=== PATIENT | female | born 1980 | race Caucasian/White ===

== ENCOUNTER 2018-04-09 10:05 | Emergency (ER) | payer SELFPAY, BC ==
[2018-04-09 10:45] LABS: BASO # 0.1 10^3/uL (0.0-0.2); BASO % 0.5 % (0.0-1.0); EOS # 0.4 10^3/uL (0.0-0.50); EOS % 3.7 % (0.0-3.0); HEMATOCRIT 37.8 % (36.0-47.0); HEMOGLOBIN 13.2 g/dl (12.0-15.5); IMMATURE GRANULOCYTE % 0.3 % (0-3.0); LYMPH # 2.2 10^3/uL (1.5-4.5); LYMPH % 22.7 % (24.0-44.0); MEAN CORPUSCULAR HEMOGLOBIN 30.4 pg (27.0-33.0); MEAN CORPUSCULAR HGB CONC 34.9 g/dl (32.0-36.5); MEAN CORPUSCULAR VOLUME 87.1 fl (80.0-96.0); MONO # 0.6 10^3/uL (0.0-0.8); MONO % 5.9 % (0.0-5.0); NEUTROPHILS # 6.6 10^3/uL (1.8-7.7); NEUTROPHILS % 66.9 % (36.0-66.0); PLATELET COUNT, AUTOMATED 233 10^3/uL (150-450); RED BLOOD COUNT 4.34 10^6/uL (4.00-5.40); RED CELL DISTRIBUTION WIDTH 11.6 % (11.5-14.5); WHITE BLOOD COUNT 9.8 10^3/uL (4.0-10.0)
[2018-04-09] MEDS: NS 1,000 ML IV (10:49)
[2018-04-09] MEDS: FAMOTIDINE IV BAG 20 MG in APPROPRIATE DILUENT 1 EA IV (10:49)
[2018-04-09 10:54] LABS: KETONE, URINE AUTO RFX NEGATIVE (NEGATIVE); LEUKOCYTE ESTERASE UR AUTO RFX NEGATIVE (NEGATIVE); MUCUS, URINE RFX SMALL (NEGATIVE); NITRITE, URINE AUTO RFX NEGATIVE (NEGATIVE); RBC, URINE AUTO RFX 2 /HPF (0-3); SPECIFIC GRAVITY UR AUTO RFX 1.026 (1.002-1.035); SQUAM EPITHELIAL CELL UR AURFX 1 /HPF (0-6); WBC, URINE AUTO RFX 0 /HPF (0-3)
[2018-04-09 11:17] LABS: ALBUMIN 3.2 GM/DL (3.2-5.2); ALBUMIN/GLOBULIN RATIO 0.97 (1.00-1.93); ALKALINE PHOSPHATASE 46 U/L (45-117); ALT/SGPT 17 U/L (12-78); ANION GAP 11 MEQ/L (8-16); AST/SGOT 16 U/L (7-37); BILIRUBIN,DIRECT < 0.1 MG/DL (0.0-0.2); BILIRUBIN,TOTAL 0.4 MG/DL (0.2-1.0); BLOOD UREA NITROGEN 10 MG/DL (7-18); CALCIUM LEVEL 8.3 MG/DL (8.5-10.1); CARBON DIOXIDE LEVEL 25 MEQ/L (21-32); CHLORIDE LEVEL 105 MEQ/L (98-107); CREATININE FOR GFR 0.77 MG/DL (0.55-1.30); GLOMERULAR FILTRATION RATE > 60.0 (>60); GLUCOSE, FASTING 77 MG/DL (70-100); LIPASE 133 U/L (73-393); POTASSIUM SERUM 3.8 MEQ/L (3.5-5.1); SODIUM LEVEL 141 MEQ/L (136-145); TOTAL PROTEIN 6.5 GM/DL (6.4-8.2)
[2018-04-09] MEDS: METOCLOPRAMIDE INJ 10MG/2ML VIAL (J2765) IV (11:27)
== END 2018-04-09 12:42 | disposition home or self-care (01) ==
LOC: M ED 10:05
DX: O99.611 Diseases of the digestive system complicating pregnancy, first trimester (principal); K21.9 Gastro-esophageal reflux disease without esophagitis; K80.50 Calculus of bile duct without cholangitis or cholecystitis without obstruction; Z3A.08 8 weeks gestation of pregnancy; Z88.1 Allergy status to other antibiotic agents; Z88.2 Allergy status to sulfonamides; Z83.79 Family history of other diseases of the digestive system
CPT/HCPCS: J2765

== ENCOUNTER → 2018-04-13 | Outpatient (REF) | payer SELFPAY | LOC: M LAB REF 15:14 | DX: R19.7 Diarrhea, unspecified (principal); R10.11 Right upper quadrant pain ==

== ENCOUNTER → 2018-05-06 | Outpatient (CLI) | payer SELFPAY ==
[2018-05-06 14:11] LABS: BASO % 0.4 % (0.0-1.0); EOS # 0.4 10^3/uL (0.0-0.50); EOS % 4.2 % (0.0-3.0); HEMOGLOBIN 12.2 g/dl (12.0-15.5); IMMATURE GRANULOCYTE % 0.4 % (0-3.0); LYMPH # 2.3 10^3/uL (1.5-4.5); LYMPH % 23.7 % (24.0-44.0); MEAN CORPUSCULAR HEMOGLOBIN 31.5 pg (27.0-33.0); MEAN CORPUSCULAR HGB CONC 35.9 g/dl (32.0-36.5); MEAN CORPUSCULAR VOLUME 87.9 fl (80.0-96.0); MONO # 0.5 10^3/uL (0.0-0.8); MONO % 5.3 % (0.0-5.0); NEUTROPHILS # 6.4 10^3/uL (1.8-7.7); PLATELET COUNT, AUTOMATED 239 10^3/uL (150-450); RED BLOOD COUNT 3.87 10^6/uL (4.00-5.40); RED CELL DISTRIBUTION WIDTH 12.3 % (11.5-14.5); WHITE BLOOD COUNT 9.8 10^3/uL (4.0-10.0)
[2018-05-06 15:10] LABS: HBsAg Prenatal NEGATIVE (NEGATIVE); HIV 1&2 SCREEN CENTAUR NEGATIVE (NEGATIVE); RUBELLA IgG QUALITATIVE IMMUNE (IMMUNE)
[2018-05-06 15:30] LABS: CHLAMYDIA DNA AMPLIFICATION NEGATIVE (NEGATIVE); GC DNA AMPLIFICATION NEGATIVE (NEGATIVE)
== END ==
LOC: M LAB 13:19
DX: Z36.89 Encounter for other specified antenatal screening (principal)
CPT/HCPCS: 86762

== ENCOUNTER → 2018-07-13 | Outpatient (CLI) | payer OTHER ==
[~2018-07-13] MED LIST: FERR325T3 PO; PEPC1TAB5 PO; PRENTAB55 PO
--- NOTE | 2018-07-14 08:56 | REP ---
Obstetric sonography: History: Supervision of for anatomy. Findings: Scanning through the gravid uterus demonstrates a viable single intrauterine gestation in a cephalic lie. motion is observed and heart rate is recorded at 144 beats per minute. A posterior grade 1 placenta is seen without evidence of previa or abruption. Amniotic fluid is subjectively normal. Closed cervical length is 4.9 cm viewed transabdominally. No extrauterine abnormalities observed. No anomaly is seen. Four-chamber heart view is less than optimally achieved due to position. The following additional anatomic structures are identified and felt to be sonographically unremarkable: cranium, choroid plexus, cavum, cerebellum and posterior fossa, face and profile, lungs, left and right ventricular cardiac outflow tract views, diaphragm, left-sided stomach, abdominal wall cord insertion, three-vessel umbilical cord, kidneys and bladder, spine, upper and lower extremities. Biometry chart: BPD 5.4 cm = 22 weeks 2 days Head circumference 19.7 cm = 21 weeks 6 days Abdominal circumference 16.5 cm = 21 weeks 4 days Femur length 3.6 cm = 21 weeks 3 days Humeral length 3.6 cm = 22 weeks 2 days Cerebellar diameter 2.4 cm = 21 weeks 6 days HC/AC ratio normal 1.20. Cephalic index normal 0.8. Estimated weight 435 grams, 0 pounds 15 ounces, 48th percentile for 21 weeks 3 days. Impression: Viable single intrauterine gestation at 21 weeks 3 days by today's sonographic criteria. BENEDICTO by today's criteria November 20, 2018. Four-chamber heart view is less than optimally seen due to position. anatomic survey is otherwise complete. Electronically Signed by Axel Harrell MD 07/14/2018 09:32 A
== END ==
LOC: M SMT 14:59
PROVIDERS: ATTEND Specialist
DX: O09.522 Supervision of elderly multigravida, second trimester (principal); Z3A.21 21 weeks gestation of pregnancy

== ENCOUNTER → 2018-10-27 | Outpatient (REF) | payer OTHER | LOC: M LAB REF 17:51 | PROVIDERS: ATTEND Specialist | DX: O09.523 Supervision of elderly multigravida, third trimester (principal) ==

== ENCOUNTER 2018-11-14 07:30 | Inpatient (IN) | payer OTHER ==
[~2018-11-14] VITALS: Ht 170.2 cm; Wt 81.9 kg
[2018-11-15] VITALS (8 sets, daily range): BP systolic 114–139; BP diastolic 68–82
[2018-11-15] MEDS ORDERED: LR 1,000 ML IV SCH ×3 (07:45→10:15)
[2018-11-15] MEDS ORDERED: LR 800 ML IV ONE (07:45)
[2018-11-15] MEDS ORDERED: BICITRA 30ML SOLN UDC PO ONE (07:45)
[2018-11-15] MEDS ORDERED: OXYC1TAB23 PO (07:56)
[2018-11-15] MEDS ORDERED: IBUP-1022 PO (07:59)
[2018-11-15 08:11] LABS: HEMATOCRIT 39.1 % (36.0-47.0); HEMOGLOBIN 13.4 g/dl (12.0-15.5); MEAN CORPUSCULAR HEMOGLOBIN 30.5 pg (27.0-33.0); MEAN CORPUSCULAR HGB CONC 34.3 g/dl (32.0-36.5); MEAN CORPUSCULAR VOLUME 89.1 fl (80.0-96.0); PLATELET COUNT, AUTOMATED 213 10^3/uL (150-450); RED BLOOD COUNT 4.39 10^6/uL (4.00-5.40); WHITE BLOOD COUNT 11.6 10^3/uL (4.0-10.0)
[2018-11-15] MEDS ORDERED: ONDANSETRON 4MG/2ML VIAL (J2405) As Ordered ONE (08:29)
[2018-11-15] MEDS ORDERED: BUPIVACAINE/DEXTROSE 0.75% 2 ML AMP As Ordered ONE (08:30)
[2018-11-15] MEDS ORDERED: OXYTOCIN INJ 10 UNITS/ML VIAL (J2590) As Ordered ONE (08:30)
[2018-11-15] MEDS ORDERED: MORPHINE PRES-FREE INJ 10 MG/10 ML VIAL (J2274) As Ordered ONE (08:31)
[2018-11-15] MEDS ORDERED: NALBUPHINE HCL 10 MG/ML AMP (J2300) IV PRN (08:45)
[2018-11-15] MEDS ORDERED: NALOXONE INJ 0.4 MG/1 ML VIAL (J2310) IV PRN ×2 (08:45)
[2018-11-15] MEDS ORDERED: METOCLOPRAMIDE INJ 10MG/2ML VIAL (J2765) IV PRN ×2 (08:45→10:15)
[2018-11-15] MEDS ORDERED: diphenhydrAMINE INJ 50MG/ML VIAL (J1200) IV PRN (08:45)
[2018-11-15] MEDS ORDERED: ONDANSETRON 4MG/2ML VIAL (J2405) IV PRN ×3 (08:45→10:15)
[2018-11-15] MEDS ORDERED: OXYTOCIN 30 UNITS IN 0.9% NaCl 500ML IV BAG (J2590) As Ordered ONE (09:57)
[2018-11-15] MEDS ORDERED: RHOGAM 300 MCG (1500 IU) INJ (J2790) IM SCH (10:00)
[2018-11-15] MEDS ORDERED: OXYTOCIN DRIP 30 UNITS in APPROPRIATE DILUENT 1 EA IV SCH (10:00)
[2018-11-15] MEDS ORDERED: PERCOCET 5MG/325MG TAB PO PRN ×2 (10:00→10:15)
[2018-11-15] MEDS ORDERED: MEASLES,MUMPS,RUBELLA VACCINE INJ (MMR-II) (90707) SC SCH (10:00)
[2018-11-15] MEDS ORDERED: MOM 30ML SUSPENSION UDC PO PRN (10:00)
--- NOTE | 2018-11-15 10:16 | RO ---
DATE OF OPERATION: 11/15/2018 PREOPERATIVE DIAGNOSIS: 39 weeks, prior (C) section times one. POSTOPERATIVE DIAGNOSIS: 39 weeks, prior section times one. PROCEDURE: Repeat low transverse section. SURGEON: Rogelio Moran MD BUILDING CARPENTER: Shilpa Smyth MD ANESTHESIA: Spinal. ESTIMATED BLOOD LOSS: 600 mL. URINE OUTPUT: 175 mL. FINDINGS: 2730-gram or 6-pound 0-ounce male infant, scores 9 and 9, vertex, adhesions of the bladder to the uterine fundus on the left. Normal fallopian tubes and ovaries. DESCRIPTION OF PROCEDURE: Operative summary: The patient taken the operating room, where spinal anesthesia was induced. She was prepped and draped in sterile fashion in the supine position. A Johnson catheter was placed. A Pfannenstiel skin incision was made with the scalpel and carried through to the fascia. The fascia was nicked and extended. The fascia was dissected off the rectus muscles. The peritoneal cavity was entered. A bladder flap was created. Adhesions to the bladder to uterine fundus were taken down sharply. A curvilinear incision was made in the lower uterine segment until clear fluid was noted. This was extended manually. The was delivered in the vertex position with a single use of the vacuum extractor. The cord was doubly clamped and cut. The infant was handed off to the awaiting nurses. The placenta was expressed. The uterus was exteriorized and cleared of clots and debris. The uterine incision was closed with 0 Vicryl in a running locked fashion. A second imbricating layer of 0 Vicryl was placed. The uterus was placed back in the abdominal cavity. The peritoneum was closed with 2-0 Vicryl in a running fashion. The fascia was closed with 0 Vicryl in a running fashion. THe subcutaneous tissue was irrigated and closed with 3-0 chromic. The skin was closed with 4-0 Monocryl in subcuticular sutures. Sponge, instrument, and needle counts were correct. Shilpa Smyth MD assisted with all aspects of the procedure. He helped create the incision in all layers of the abdomen and uterus. Her helped expel the fetus. He helped close all subsequent layers. TIERA
[2018-11-15] MEDS ORDERED: KETOROLAC 30 MG/ML VIAL (J1885) As Ordered ONE (11:13)
[2018-11-15] MEDS ORDERED: fentaNYL 100 MCG/2 ML INJECTION (J3010) As Ordered ONE (11:13)
[2018-11-15] MEDS: KETOROLAC 30 MG/ML VIAL (J1885) IV SCH ×3 (11:18→22:27)
[2018-11-15] MEDS: fentaNYL 100 MCG/2 ML INJECTION (J3010) IV PRN ×4 (11:26→11:52)
[2018-11-15] MEDS: DOCUSATE SODIUM 100 MG CAP PO SCH (21:12)
[2018-11-16 02:11] VITALS: BP 110/59
[2018-11-16] MEDS: KETOROLAC 30 MG/ML VIAL (J1885) IV SCH (05:30)
[2018-11-16 06:01] VITALS: BP 104/54
[2018-11-16 06:46] LABS: HEMATOCRIT 30.7 % (36.0-47.0); MEAN CORPUSCULAR HGB CONC 33.6 g/dl (32.0-36.5); MEAN CORPUSCULAR VOLUME 92.5 fl (80.0-96.0); PLATELET COUNT, AUTOMATED 180 10^3/uL (150-450); RED BLOOD COUNT 3.32 10^6/uL (4.00-5.40); WHITE BLOOD COUNT 11.9 10^3/uL (4.0-10.0)
[2018-11-16 06:56] LABS: HEMOGLOBIN 10.3 g/dl (12.0-15.5)
--- NOTE | 2018-11-16 07:11 | NUR ---
POD#1 S: Doing well w/o complaints. Pain moderately controlled. Tolerating reg diet, + ambulation O: vss, AF Gen: well appearing abd: soft, appropriately tender incision: dressed ext: neg calf tenderness A/P: POD # 1 s/p repeat c/s - recovering in stable condition -cont routine postoperative care -disposition plan for tomorrow Shilpa Smyth MD
[2018-11-16] MEDS: PRENATAL VITAMINS CHEWABLE TABLET PO SCH (09:28)
[2018-11-16] MEDS: DOCUSATE SODIUM 100 MG CAP PO SCH ×2 (09:28→20:38)
[2018-11-16] MEDS: PERCOCET 5MG/325MG TAB PO PRN ×3 (09:54→22:30)
[2018-11-16 10:00] VITALS: BP 114/67
[2018-11-16 13:45] VITALS: BP 111/62
[2018-11-16] MEDS: IBUPROFEN 800 MG TAB PO SCH ×2 (13:59→20:38)
[2018-11-16 18:00] VITALS: BP 105/57
[2018-11-16 21:41] VITALS: BP 108/59
[2018-11-17 02:33] VITALS: BP 104/59
[2018-11-17] MEDS: IBUPROFEN 800 MG TAB PO SCH (05:36)
[2018-11-17 05:42] VITALS: BP 108/79
--- NOTE | 2018-11-17 06:56 | DSES ---
DATE OF ADMISSION: 11/15/2018 DATE OF DISCHARGE: DISCHARGE DIAGNOSIS: Repeat section at term, postoperative day two, stable condition. SURGEON: Dr. Rogelio Moran POLL WATCHER: Dr. Shilpa Smyth HISTORY: Lina is a 38-year-old, 3, para 2-0-1-2 now, who was admitted for repeat section, elective. Her surgery was uncomplicated. The estimated blood loss was 500 mL. She did deliver a male weighing 2730 grams, 6 pounds. 9 and 9. Her postoperative course has been uncomplicated. She has been out of bed for self care, richy care and infant care. She is voiding without difficulty, tolerating by mouth fluids and a regular diet. She does report not passing flatus. Breast feeding has been established. Her pain has been well controlled with by mouth pain medications. ASSESSMENT: Temperature 97.7, pulse 101, respirations 15, blood pressure (BP) 108/79. She is alert and oriented times three. 11/15/2018 CBC: Hemoglobin 13.4, hematocrit 39.1, platelets 213. Postoperative CBC: Hemoglobin 10.3, hematocrit 30.7, platelets 180. Her breasts are soft and nontender. Her nipples are intact. There are no cracks. Abdomen: Fundus firm at one fingerbreadth below umbilicus. The incision dressing is dry and intact. There appears to be no drainage. Perineum is intact. Lochia rubra scant. PLAN: Discharge the patient home. She is to follow up at [facility] for a 2-week incision check and an 8-week visit. I did review discharge instructions that include breast care, incision care, richy care, pelvic rest, activity and lifting restrictions, danger signs to report, and access to her provider. Prescription for pain medications of Percocet 5/325 1-2 tablets by mouth every 6 hours as needed have been E-prescribed by Dr. Rogelio Moran. The patient and her have had all their questions answered and are agreeable to discharge today.
[2018-11-17] MEDS: DOCUSATE SODIUM 100 MG CAP PO SCH (08:21)
[2018-11-17] MEDS: PRENATAL VITAMINS CHEWABLE TABLET PO SCH (08:21)
[2018-11-17] MEDS: PERCOCET 5MG/325MG TAB PO PRN (08:21)
[2018-11-17 10:00] VITALS: BP 112/74
== END 2018-11-17 13:25 | disposition home or self-care (01) | DRG 540 ==
LOC: M LDI 11-15 06:28 → M OBS 11-15 11:49
PROVIDERS: ADMIT Specialist; ATTEND Specialist
PROC: 10D00Z1 Extraction of Products of Conception, Low, Open Approach (ICD-10-PCS; principal; 2018-11-15 08:30)
DX: O34.211 Maternal care for low transverse scar from previous cesarean delivery (principal); O09.523 Supervision of elderly multigravida, third trimester; Z37.0 Single live birth; Z3A.39 39 weeks gestation of pregnancy

== ENCOUNTER → 2019-11-07 | Outpatient (CLI) | payer OTHER ==
[~2019-11-07] MED LIST changes: +IBUP-1022 PO; +OXYC1TAB23 PO
--- NOTE | 2019-11-07 16:08 | REP ---
Chest x-ray: Two views. History: Cough . Comparison study: No comparison study. . Findings: The lungs are well inflated and free of infiltrate. The pleural angles are sharp. The heart size is normal. Pulmonary vasculature is not increased. No significant bony abnormality is seen. Impression: Negative chest x-ray. Electronically Signed by Axel Harrell MD 11/07/2019 04:00 P
== END ==
LOC: M CLY 08:24
PROVIDERS: ATTEND Nurse Practitioner Family
DX: R05 Cough (principal)

== ENCOUNTER → 2019-12-07 | Outpatient (REF) | payer OTHER | LOC: M SFHCWAGY 17:18 | PROVIDERS: ATTEND Specialist | DX: Z12.4 Encounter for screening for malignant neoplasm of cervix (principal); Z01.419 Encounter for gynecological examination (general) (routine) without abnormal findings ==

== ENCOUNTER → 2020-12-05 | Outpatient (CLI) | payer OTHER ==
--- NOTE | 2020-12-09 14:03 | REPMRS ---
Patient History The patient states she has not had a clinical breast exam in over a year. Patient had first child at age 35. Family history of breast cancer at age 45 in mother. Patient states no breast complaints today. Patient has signed MRS History Sheet. Digital Woman Screen Mammo: December 05, 2020 - Exam #: [id number] Bilateral CC and MLO view(s) were taken. Technologist: Mary Anne Thrasher Technologist FINDINGS: The breast tissue is extremely dense which could obscure a lesion on mammography. Screening. Digital screening (2D) mammography was performed bilaterally in the CC and MLO projections. Additionally, breast tomosynthesis (3D mammography) was performed bilaterally in the CC and MLO projections. Todays exam was compared to the prior exam/exams. By history, the patient has no complaints of a palpable breast abnormality or other significant breast complaints. The breasts are unchanged in size and shape. Once again, dense heterogenous fibroglandular elements are seen bilaterally in a stable appearing pattern but to such a degree that the sensitivity of the mammogram in detecting cancer is decreased.There are no gordon-soft tissue densities or spiculated masses. There is no internal architectural distortion.Once again, stable benign appearing calcifications are seen. There are no suspicious gordon-calcific clusters. Skin thickening or nipple retraction is not present. IMPRESSION: BI-RADS Category 2- Benign Findings. There is no evidence of malignant alteration of the breasts. Followup examination recommended in one year. The Volpara volumetric breast density category is D, the breasts are extremely dense which lowers the sensitivity of mammography. This mammogram was read with the assistance of [facility],an FDA approved computer aided detection system for mammography. The lifetime Tyrer-Cuzick score is 28 % Due to the density of the breasts or Tyrer Cuzick score of 20% or greater, MRI/whole breast screening ultrasound is warranted. Negative x-ray reports should not delay surgical consultation if a dominant or clinically suspicious mass is present. Not all breast cancers can be identified by mammography. Therefore, we recommend that you continue to perform regular breast self-examination and physical examination and then promptly contact your physician of any concerns or changes. Adenosis and dense breasts may obscure an underlying neoplasm. Assessment: BI-RADS/ACR category 2 mammogram. Benign Findings. Recommendation Routine screening mammogram of both breasts in 1 year. Electronically Signed By: Jonathan Marcano DO 12/09/20 [id number]
== END ==
LOC: M WHC 07:08
PROVIDERS: ATTEND Specialist
DX: Z12.31 Encounter for screening mammogram for malignant neoplasm of breast (principal)

== ENCOUNTER → 2021-01-08 | Outpatient (CLI) | payer OTHER ==
--- NOTE | 2021-01-08 09:27 | REP ---
INDICATION: PAIN OF RT GREAT TOE COMPARISON: None. TECHNIQUE: AP, lateral, bilateral oblique views right foot. FINDINGS: The osseous structures and joint spaces are intact and normal. There is no evidence for acute fracture or dislocation. Surrounding soft tissues are unremarkable. No subcutaneous emphysema or radiodense foreign body. There is subtle sclerosis and joint space narrowing at the 1st metatarsophalangeal joint which is relatively age-appropriate. IMPRESSION: Very minimal age-related changes at the 1st MTP joint. <Electronically signed by Cole Fischer > 01/08/21 0913
== END ==
LOC: M CLY 08:34
PROVIDERS: ATTEND Nurse Practitioner Family
DX: M79.674 Pain in right toe(s) (principal)

== ENCOUNTER → 2021-05-28 | Outpatient (REF) | payer OTHER ==
[2021-05-28 16:21] LABS: BASO # 0.1 10^3/uL (0.0-0.2); BASO % 0.7 % (0.0-1.0); EOS # 0.6 10^3/uL (0.0-0.5); EOS % 6.8 % (0.0-3.0); HEMATOCRIT 40.8 % (36.0-47.0); HEMOGLOBIN 13.2 g/dl (12.0-15.5); LYMPH # 2.9 10^3/uL (1.5-5.0); LYMPH % 34.3 % (24.0-44.0); MEAN CORPUSCULAR HEMOGLOBIN 29.5 pg (27.0-33.0); MEAN CORPUSCULAR HGB CONC 32.4 g/dl (32.0-36.5); MEAN CORPUSCULAR VOLUME 91.1 fl (80.0-96.0); MONO # 0.5 10^3/uL (0.0-0.8); MONO % 6.2 % (2.0-8.0); NEUTROPHILS # 4.3 10^3/uL (1.5-8.5); NEUTROPHILS % 51.9 % (36.0-66.0); PLATELET COUNT, AUTOMATED 238 10^3/uL (150-450); RED BLOOD COUNT 4.48 10^6/uL (4.00-5.40); WHITE BLOOD COUNT 8.4 10^3/uL (4.0-10.0)
[2021-05-28 17:01] LABS: ALBUMIN 3.7 GM/DL (3.2-5.2); ALT/SGPT 18 U/L (12-78); BILIRUBIN,TOTAL 0.6 MG/DL (0.2-1.0); BLOOD UREA NITROGEN 14 MG/DL (7-18); CALCIUM LEVEL 9.1 MG/DL (8.5-10.1); CARBON DIOXIDE LEVEL 30 MEQ/L (21-32); CHLORIDE LEVEL 105 MEQ/L (98-107); CHOLESTEROL LEVEL 199 MG/DL (<200); CHOLESTEROL RISK RATIO 2.456 (<5); CREATININE FOR GFR 0.94 MG/DL (0.55-1.30); FREE T4 0.96 NG/DL (0.76-1.46); GLOMERULAR FILTRATION RATE > 60.0 (>60); GLUCOSE, FASTING 76 MG/DL (70-100); HDL CHOLESTEROL 81 MG/DL (>40); LDL CHOLESTEROL 98 MG/DL (<100); MAGNESIUM LEVEL 1.8 MG/DL (1.8-2.4); NON-HDL-C 118 MG/DL; POTASSIUM SERUM 4.5 MEQ/L (3.5-5.1); SODIUM LEVEL 138 MEQ/L (136-145); TOTAL PROTEIN 6.8 GM/DL (6.4-8.2); TRIGLYCERIDES LEVEL 99 MG/DL (<150)
== END ==
LOC: M SFHCCLAY 10:04
PROVIDERS: ATTEND Nurse Practitioner Family
DX: M79.674 Pain in right toe(s) (principal); Z13.220 Encounter for screening for lipoid disorders; R53.83 Other fatigue; R00.2 Palpitations

== ENCOUNTER → 2021-08-05 | Outpatient (REF) | payer OTHER | LOC: M PLALAB 09:02 | PROVIDERS: ATTEND Specialist | DX: Z01.419 Encounter for gynecological examination (general) (routine) without abnormal findings (principal) ==

== ENCOUNTER → 2021-09-10 | Outpatient (CLI) | payer OTHER ==
[~2021-09-10] MED LIST changes: +PROHANCE 279.3MG/ML 15ML VIAL ONE
== END ==
LOC: M PLAIMG 14:52
PROVIDERS: ATTEND Specialist
DX: R92.2 Inconclusive mammogram (principal); Z12.31 Encounter for screening mammogram for malignant neoplasm of breast
CPT/HCPCS: A9576; C8908

== ENCOUNTER → 2022-09-15 | Outpatient (REF) | payer OTHER ==
[~2022-09-15] MED LIST changes: -PROHANCE 279.3MG/ML 15ML VIAL ONE
== END ==
LOC: M SFHCWAGY 17:24
PROVIDERS: ATTEND Specialist
DX: Z01.419 Encounter for gynecological examination (general) (routine) without abnormal findings (principal)
CPT/HCPCS: 87624; G0123

== ENCOUNTER → 2023-03-03 | Outpatient (REF) | payer OTHER ==
[2023-03-03 18:19] LABS: BASO % 0.4 % (0.0-1.0); EOS # 0.2 10^3/uL (0.0-0.5); EOS % 2.5 % (0.0-3.0); HEMATOCRIT 38.7 % (36.0-47.0); HEMOGLOBIN 12.8 g/dl (12.0-15.5); LYMPH # 2.4 10^3/uL (1.5-5.0); LYMPH % 30.2 % (24.0-44.0); MEAN CORPUSCULAR HEMOGLOBIN 29.6 pg (27.0-33.0); MEAN CORPUSCULAR HGB CONC 33.1 g/dl (32.0-36.5); MEAN CORPUSCULAR VOLUME 89.6 fl (80.0-96.0); MONO # 0.5 10^3/uL (0.0-0.8); MONO % 6.3 % (2.0-8.0); NEUTROPHILS # 4.8 10^3/uL (1.5-8.5); NEUTROPHILS % 60.2 % (36.0-66.0); PLATELET COUNT, AUTOMATED 243 10^3/uL (150-450); RED BLOOD COUNT 4.32 10^6/uL (4.00-5.40)
[2023-03-03 18:52] LABS: LIPASE 33 U/L (12-53)
[2023-03-03 18:54] LABS: ALBUMIN 3.4 G/DL (3.2-5.2); ALKALINE PHOSPHATASE 62 U/L (46-116); ALT/SGPT 19 U/L (7.0-40); AMYLASE 77 U/L (30-118); AST/SGOT 17 U/L (<34); BILIRUBIN,TOTAL 0.5 MG/DL (0.3-1.2); BLOOD UREA NITROGEN 13 MG/DL (9-23); CALCIUM LEVEL 8.7 MG/DL (8.5-10.1); CARBON DIOXIDE LEVEL 28 MMOL/L (20-31); CHLORIDE LEVEL 107 MMOL/L (98-107); CREATININE FOR GFR 0.89 MG/DL (0.55-1.30); GLOMERULAR FILTRATION RATE > 60.0 (>58); GLUCOSE, FASTING 86 MG/DL (60-100); SODIUM LEVEL 140 MMOL/L (136-145); TOTAL PROTEIN 6.2 G/DL (5.7-8.2)
== END ==
LOC: M SFHCCLAY 11:46
PROVIDERS: ATTEND Nurse Practitioner Family
DX: R10.11 Right upper quadrant pain (principal)

== ENCOUNTER → 2023-04-15 | Outpatient (CLI) | payer OTHER | LOC: M WHC 09:37 | PROVIDERS: ATTEND Specialist | DX: Z12.31 Encounter for screening mammogram for malignant neoplasm of breast (principal) ==

== ENCOUNTER → 2024-05-23 | Outpatient (CLI) | payer OTHER | LOC: M WHC 09:36 | PROVIDERS: ATTEND Obstetrics & Gynecology | DX: Z12.31 Encounter for screening mammogram for malignant neoplasm of breast (principal); R92.333 Mammographic heterogeneous density, bilateral breasts ==

== ENCOUNTER → 2024-06-21 | Outpatient (CLI) | payer OTHER | LOC: M CLY 08:04 | PROVIDERS: ATTEND Physician Assistant | DX: R05.3 Chronic cough (principal) ==

== ENCOUNTER → 2024-10-06 | Outpatient (REF) | payer OTHER | LOC: M SFHCWAGY 16:53 | PROVIDERS: ATTEND Specialist | DX: N39.0 Urinary tract infection, site not specified (principal) ==

== ENCOUNTER → 2025-01-25 | Outpatient (CLI) | payer OTHER ==
[~2025-01-25] MED LIST changes: +PROHANCE 279.3MG/ML 15ML VIAL ONE
== END ==
LOC: M PLAIMG 08:55
PROVIDERS: ATTEND Specialist
DX: Z12.31 Encounter for screening mammogram for malignant neoplasm of breast (principal); Z80.3 Family history of malignant neoplasm of breast; R92.333 Mammographic heterogeneous density, bilateral breasts
CPT/HCPCS: A9576; C8908

== ENCOUNTER → 2025-05-28 | Outpatient (REF) | payer OTHER ==
[~2025-05-28] MED LIST changes: -IBUP-1022 PO; +IBUP600T42 PO; -PROHANCE 279.3MG/ML 15ML VIAL ONE
[2025-05-30 14:17] LABS: HPV APTIMA Not Detected (Not Detected)
== END ==
LOC: M SFHCWAGY 10:49
PROVIDERS: ATTEND Specialist
DX: Z12.4 Encounter for screening for malignant neoplasm of cervix (principal)
CPT/HCPCS: 87624; G0123